=== PATIENT | male | born 1945 | race Caucasian/White ===

== ENCOUNTER 2020-01-10 09:36 | Day surgery (SDC) | payer MEDICARE ==
[~2020-01-10] VITALS: Ht 185.4 cm; Wt 76.4 kg
[2020-01-10] MEDS ORDERED: APIX5TAB PO (10:07)
[2020-01-10] MEDS ORDERED: DIAZ5TAB PO (10:07)
[2020-01-10] MEDS ORDERED: FINA1TAB16 PO (10:07)
[2020-01-10] MEDS ORDERED: METO25TA35 PO (10:07)
[2020-01-10] MEDS ORDERED: LATA7.5D EACHEYE (10:07)
[2020-01-10] MEDS ORDERED: SODIUM CHLORIDE 0.9% 1,000 ML IV SCH ×2 (11:15→12:47)
[2020-01-10 11:16] VITALS: BP 132/85
[2020-01-10 11:25] LABS: BASOPHILS # (AUTO) 0.02 x10^3/uL (0-0.1); BASOPHILS % (AUTO) 0 % (0-1); EOSINOPHILS # (AUTO) 0.04 x10^3/uL (0-0.4); EOSINOPHILS % (AUTO) 1 % (1-7); LYMPHOCYTES # (AUTO) 0.99 x10^3/uL (1-3.4); LYMPHOCYTES % (AUTO) 17 % (22-44); MD NO; MEAN CORPUSCULAR HEMOGLOBIN 33.7 pg (27.5-34.5); MEAN CORPUSCULAR HGB CONC 33.1 g/dL (33.2-36.2); MEAN CORPUSCULAR VOLUME 101.5 fL (81-97); MEAN PLATELET VOLUME 8.5 fL (7.4-10.4); MONOCYTES # (AUTO) 0.47 x10^3/uL (0.2-0.8); MONOCYTES % (AUTO) 8 % (2-9); NEUTROPHILS # (AUTO) 4.37 x10^3/uL (1.8-6.8); NEUTROPHILS % (AUTO) 74 % (42-75); PLATELET COUNT 144 x10^3/uL (130-400); RED BLOOD COUNT 4.96 x10^6/uL (4.38-5.82); RED CELL DISTRIBUTION WIDTH 12.9 % (9.4-14.8)
[2020-01-10 11:43] LABS: ANION GAP 9 mmol/L (5-15); CALCIUM 9.3 mg/dL (8.5-10.1); CHLORIDE 111 mmol/L (98-107)
[2020-01-10 11:51] LABS: CREATININE 1.11 mg/dL (0.7-1.3)
[2020-01-10] MEDS ORDERED: FENTANYL PF 100 MCG/2ML ONE (12:06)
[2020-01-10] MEDS ORDERED: MIDAZOLAM 1 MG/ML, 5ML ONE (12:06)
[2020-01-10] MEDS ORDERED: TICAGRELOR 90 MG TABLET ONE (12:07)
[2020-01-10] MEDS ORDERED: VERAPAMIL 2.5 MG/ML, 2ML ONE (12:07)
[2020-01-10] MEDS ORDERED: LIDOCAINE-MPF 1%, 5ML ONE (12:07)
[2020-01-10] MEDS ORDERED: HEPARIN 1,000 UNITS/ML, 10ML ONE (12:07)
[2020-01-10] MEDS ORDERED: BIVALIRUDIN 250 MG ONE (12:07)
[2020-01-10] MEDS ORDERED: methylPREDNISolone SOD SUCC 125 MG/2 ML ONE (12:21)
== END 2020-01-10 14:47 | disposition home or self-care (01) ==
LOC: CACL 09:36
PROVIDERS: ATTEND Internal Medicine Cardiovascular Disease
DX: I47.2 Ventricular tachycardia (principal); Q23.1 Congenital insufficiency of aortic valve; I48.0 Paroxysmal atrial fibrillation; I20.0 Unstable angina; Z79.01 Long term (current) use of anticoagulants; Z79.899 Other long term (current) drug therapy; Z87.891 Personal history of nicotine dependence; Z91.013 Allergy to seafood
CPT/HCPCS: 36415; 80048; 85025; 93458; 99156; C1769; C1894; J1644; J2250; J2930; J3010; Q9967; J0583